=== PATIENT | female | born 1965 | race Caucasian/White ===

== ENCOUNTER 2019-10-03 08:05 | Outpatient (CLI) | payer SELFPAY ==
--- NOTE | 2019-10-03 08:36 | CT_ITS ---
WS: [id number] CT ABDOMEN AND PELVIS WITH CONTRAST HISTORY: ABDOMINAL PAIN, LEFT upper quadrant nodules. TECHNIQUE: Imaging performed of the abdomen and pelvis with IV contrast. Single phase imaging of the abdomen. Coronal and sagittal reformats are submitted. All CT scans at [facility] use at least one of these dose optimization techniques: automated exposure control; mA and/or kV adjustment per patient size (includes targeted exams where dose is matched to clinical indication); or iterativ e reconstruction. IV CONTRAST: Omnipaque 300; 95 mL IV. Oral contrast: Yes. DLP: 1170.82 mGycm COMPARISON: None available. Lower thorax: Noncalcified 4 mm nodules at the LEFT lung base. There are 2 nodules present in each me asuring about 4 mm. Heart is normal size. Small hiatal hernia. Liver/biliary system: Small cyst in the LEFT lobe. Mild hepatic steatosis with no mass or bile duct d ilatation. Gallbladder: Normal. No gallstones or wall thickening. No pericholecystic fluid. Pancreas: Normal. Spleen: Normal. Adrenal glands: Normal. Right kidney: Normal. Left kidney: Normal. Aorta: Mild atherosclerosis with no aneurysm. Lymphadenopathy: None. Free fluid: None. GI tract: Unremarkable. Abdominal wall: Unremarkable abdominal wall. No hernia. Pelvis: Prior hysterectomy. No free fluid or adenopathy. Bones: Moderate degenerative disc disease at L5-S1. CT/CT abdomen pelvis w con* [id number] IMPRESSION: 1. No LEFT upper quadrant mass. 2. Mild hepatic steatosis. 3. LEFT lower lobe 4 mm pulmonary nodules. Nodules measuring less than 6 mm, n o additional follow-up necessary. Option of [address] follow-up for hig her risk patients.
[2019-10-03] MEDS: iohexol 300 mg/mL 50 mL Btl PO (10:36)
[2019-10-03] MEDS: iohexol 300 mg/mL 100 mL Btl IV (10:48)
== END 2019-10-03 08:06 | disposition home or self-care (01) ==
LOC: RADWPI 08:11
PROVIDERS: PCP Nurse Practitioner Primary Care; Referring Provider Nurse Practitioner Primary Care; Visit Provider Nurse Practitioner Primary Care
DX: K76.0 Fatty (change of) liver, not elsewhere classified (principal); R91.8 Other nonspecific abnormal finding of lung field
CPT/HCPCS: 74177; Q9967